=== PATIENT | male | born 2000 | race Caucasian/White ===

== ENCOUNTER 2019-11-19 15:41 | Observation (INO) ==
[2019-11-19] MEDS ORDERED: MoRPHine SULFATE 4 MG/ML 1 ML CARP\\VIAL IV STA (16:22)
[2019-11-19] MEDS ORDERED: SODIUM CHLORIDE 0.9% 1000ML 1,000 ML IV ONE (16:22)
[2019-11-19] MEDS ORDERED: DiphenhydrAMINE HCL 50 MG/ML VIAL IV STA (16:22)
[2019-11-19] MEDS ORDERED: METOCLOPRAMIDE HCL INJ 5 MG/ML 2 ML VIAL IV STA (16:22)
[2019-11-19] MEDS ORDERED: FAMOTIDINE 20MG IV PUSH 20 MG/5 ML SYR IV STA (16:22)
--- NOTE | 2019-11-19 16:40 | Emergency Department Note ---
Impression & Plan Nausea & vomiting, Abdominal pain, Dehydration ED Provider Note Provider: Mikal Antonio MD DATE OF SERVICE: 11/19/2019 CHIEF COMPLAINT: Abdominal pain, vomiting HISTORY OF PRESENT ILLNESS: Patient is a 19-year-old gentleman with a history of anxiety as well as recent onset of abdominal issues presenting here today for severe abdominal pain nausea and vomiting. Patient was evaluated here earlier this morning but states about an hour after leaving he had symptoms restart. Denies drinking anything to provoke this. Denies fevers. Denies trauma. Endorses some diarrhea. Patient states he was hospitalized about a month ago in [place] for similar. Patient states his anxiety is a flare. States his little bit of heartburn symptoms. Patient is highly anxious and states he has severe pain. Patient endorses abdominal tenderness REVIEW OF SYSTEMS: A total of 10 review of systems was obtained and negative except as stated above in the HPI. PAST MEDICAL HISTORY: As noted above MEDICATIONS: Reviewed home medication list SOCIAL HISTORY: College student, does use marijuana PHYSICAL EXAM: GENERAL: alert writhing on the bed on his right side appears quite uncomfortable Head: normocephalic and atraumatic EYES: No injection, discharge or icterus. ENT: Mucous membranes pink and moist. LUNGS: Airway patent. No retractions. HEART: Regular tachycardic rate and rhythm. No chest wall tenderness ABDOMEN: Soft with diffuse abdominal tenderness SKIN: Acyanotic, warm, mildly diaphoretic EXTREMITIES: Without swelling, tenderness or deformity NEUROLOGICAL: No focal deficits. No aphasia. No facial droop or slurred speech. Psych: Patient endorses and appears quite anxious EK bpm normal sinus rhythm no PVCs or PACs. No acute ST segment elevation. QTc 456 CONTINUOUS CARDIAC MONITORING: was ordered and showed a heart rate of 74 bpm in normal sinus rhythm Patient's hypertension was referred to the hospitalist HOSPITAL COURSE: 1620 Patient was first seen and H&P performed. Father at bedside. Patient appears significantly uncomfortable and anxious. 1655 Patient reassessed and updated. Patient was much improved. Will discuss with the hospitalist team. Patient's laboratory studies and imaging reviewed. Differential includes Appendicitis, infections, diverticulitis, UTI, obstruction, mesenteric ischemia, aortic pathology, inflammatory bowel disease, renal colic, PUD, pancreatitis, biliary pathology, hernia, volvulus, constipation, as well as other pathologies. IMPRESSION/MEDICAL DECISION MAKING: Patient presents with severe diffuse abdominal pain. Had blood work and a CT image performed this morning. Reviewed recent medical records. Patient treated here symptomatically fluids, antiemetics, morphine as well as Pepcid. Repeat blood work was sent. EKG and troponin complain of lower suspicion for acute ACS given his age and risk factors. CT of the abdomen pelvis was completed just several hours ago and do not feel repeat would be beneficial. I have some component of cannabinoid hyperemesis or versus gastritis. Given some Pepcid in addition to Reglan IV fluid and morphine. Labs do note a slight increase in leukocytosis but no other significant transaminitis or evidence of lipase elevation consistent with pancreatitis. Bilirubin unchanged from earlier today. Ketones noted in the urine because of some mild dehydration likely to his nausea and vomiting. Given his recurrence of symptoms and severity of his symptoms patient father wished for GI consultation which I feel would be reasonable. On reevaluation he is having improvement. Discussed with him plan for further observation here in the hospital. DIAGNOSIS: Abdominal pain, nausea vomiting DISPOSITION: Hospitalist will evaluate Patient was agreeable with this plan. Past Med/Surg History Medical History (Updated 11/19/19 @ 19:20 by Mikal Antonio M.D.) Anxiety Gastritis Surgical History No history of previous surgery Social History Smoking Status: Never smoker Hx Alcohol Use: Yes Alcohol Intake Frequency: 2-4 x/Month Hx Substance Use: Yes Non-Prescribed Medications: Marijuana Preferred Language: Turkmen Current Living Situation Comment: Apartment with roommate current occupational status: student current occupation: [employer] student from [facility] [facility] [employer] Feels Safe at Home: Yes Allergies Allergies Allergy/AdvReac Type Severity Reaction Status Date / Time No Known Allergies Allergy Verified 11/19/19 12:19 Home Meds Home Medications Medication Instructions Recorded Confirmed omeprazole 20 mg PO QAM 11/19/19 11/19/19 Previous Rx's Medication Instructions Recorded ondansetron 4 mg PO Q6H PRN #20 tab 11/17/19 dicyclomine 10 mg PO TID PRN #15 cap 11/19/19 pantoprazole [Protonix] 40 mg PO DAILY #30 tab 11/19/19 Results & Data (ED) Vital Signs Vital Signs - 24 hr 11/19/19 15:43 11/19/19 17:03 11/19/19 17:30 Temperature 36.5 C Temperature Source Oral Pulse Rate 86 76 78 Respiratory Rate 20 21 16 Respiratory Effort / Characteristics Non-Labored Spontaneous Respiratory Depth Normal Respiratory Pattern Regular Blood Pressure 143/88 H 126/63 133/48 L Blood Pressure Mean 106 83 71 Blood Pressure Position Sitting Pulse Oximetry 96 97 99 Oxygen Delivery Method Room Air Sepsis Recent Fever Within 48 Hours No Sepsis New/Unexplained Change in Mental Status N/A Sepsis Action Taken by Nursing No Action Required 11/19/19 18:33 Temperature Temperature Source Pulse Rate 74 Respiratory Rate 22 Respiratory Effort / Characteristics Respiratory Depth Respiratory Pattern Blood Pressure 120/65 Blood Pressure Mean 81 Blood Pressure Position Pulse Oximetry 98 Oxygen Delivery Method Sepsis Recent Fever Within 48 Hours Sepsis New/Unexplained Change in Mental Status Sepsis Action Taken by Nursing Laboratory Data Result diagrams: 11/19/19 16:29 11/19/19 16:29 Lab Results 11/19/19 11/19/19 11/19/19 Range/Units 16:29 16:29 17:43 WBC 11.19 H (4.8-10.8) K/uL RBC 5.04 (4.7-6.1) M/uL Hgb 15.6 (14.0-18.0) g/dL Hct 44.8 (42-52) % MCV 88.9 (80-100) fL MCH 31.0 (25-34) pg MCHC 34.8 (32-36) g/dL RDW Std Deviation 42.6 (36.4-46.3) fL RDW Coeff of [place] 13.1 (11.5-14.5) % Plt Count 265 (130-400) K/uL MPV 10.2 (7.4-10.4) fL Immature Gran % (Auto) 0.2 % Neut % (Auto) 85.4 % Lymph % (Auto) 10.4 % [place] % (Auto) 3.8 % Eos % (Auto) 0.0 % Baso % (Auto) 0.2 % Neut # (Auto) 9.56 H (1.4-6.5) K/uL Lymph # (Auto) 1.16 L (1.2-3.4) K/uL [place] # (Auto) 0.43 (0.11-0.59) K/uL Eos # (Auto) 0.00 (0-0.5) K/uL Baso # (Auto) 0.02 (0-0.2) K/uL Immature Gran # (Auto) 0.02 (0.00-0.02) K/uL Sodium 137 (136-145) mmol/L Potassium 4.0 (3.5-5.1) mmol/L Chloride 107 (98-107) mmol/L Carbon Dioxide 17 L (21-32) mmol/L Anion Gap 13.0 H (3-11) BUN 11 (7-18) mg/dl Creatinine 1.11 (0.6-1.4) mg/dl Est Cr Clr Drug Dosing 102.7 ml/min Est GFR ( Amer) 110.2 Est GFR (Non-Af Amer) 95.1 BUN/Creatinine Ratio 9.9 L (10-20) Glucose 96 (70-99) mg/dl Calcium 9.9 (8.5-10.1) mg/dl Total Bilirubin 1.3 H (0.2-1) mg/dl AST 24 (15-37) U/L ALT 15 (12-78) U/L Alkaline Phosphatase 73 (45-117) U/L Troponin I < 0.015 (0-0.045) ng/ml Total Protein 8.2 (6.4-8.2) gm/dl Albumin 4.6 (3.4-5.0) gm/dl Globulin 3.6 (2.5-4.0) gm/dl Albumin/Globulin Ratio 1.3 (0.9-2) Lipase 73 (73-393) U/L Urine Color [place] Urine Appearance Clear (Clear) Urine pH 8.0 H (4.5-7.5) Ur Specific [place] 1.038 H (1.000-1.030) Urine Protein Negative (Negative) Urine Glucose (UA) Negative (Negative) Urine Ketones 3+ H (Negative) Urine Blood Negative (Negative) Urine Nitrite Negative (Negative) Urine Bilirubin Negative (Negative) Urine Urobilinogen Negative (Negative) Ur Leukocyte Esterase Negative (Negative) Administered Medications Discontinued Medications Diphenhydramine HCl (Diphenhydramine Hcl 50 Mg/Ml Vial) 25 mg IV NOW STA Stop: 11/19/19 16:23 Last Admin: 11/19/19 16:36 Dose: 25 mg Documented by: [id number] Sodium Chloride (Nss 1000ml) 1,000 mls @ 999 mls/hr IV .Q1H1M ONE Stop: 11/19/19 17:22 Last Infusion: 11/19/19 17:37 Dose: 0 mls/hr Documented by: [id number] Admin: 11/19/19 16:36 Dose: 999 mls/hr Documented by: [id number] Famotidine (Pepcid 20mg Iv Push) 20 mg in 5 mls @ 2.5 mls/min IV NOW STA Stop: 11/19/19 16:23 Last Admin: 11/19/19 16:35 Dose: 2.5 mls/min Documented by: [id number] Metoclopramide HCl (Metoclopramide Hcl Inj 5 Mg/Ml 2 Ml Vial) 5 mg IV NOW STA Stop: 11/19/19 16:23 Last Admin: 11/19/19 16:35 Dose: 5 mg Documented by: [id number] Morphine Sulfate (Morphine Sulfate 4 Mg/Ml 1 Ml Carp\Vial) 4 mg IV NOW STA Stop: 11/19/19 16:23 Last Admin: 11/19/19 16:35 Dose: 4 mg Documented by: [id number] Pantoprazole Sodium (Pantoprazole 40 Mg Tab) 40 mg PO [id number] ONE Stop: 11/19/19 18:46 Last Admin: 11/19/19 18:39 Dose: 40 mg Documented by: [id number] Pantoprazole Sodium (Pantoprazole 40 Mg Tab) Confirm Administered Dose 40 mg .[facility] Stop: 11/19/19 18:32 Last Admin: 11/19/19 18:33 Dose: Not Given Documented by: [id number] Discharge Plan Visit Data Chief Complaint: Abdominal Pain Stated Complaint: abd pain, nausea, was here earlier today ED Provider: Mikal Antonio Discharge Problem: Nausea & vomiting, Abdominal pain, Dehydration Forms Stand Alone Forms: My [facility] [employer] Prescriptions Prescriptions: No Action ondansetron 4 mg tablet,disintegrating 4 mg PO Q6H PRN (Reason: nausea and vomiting) Qty: 20 RF: 0 omeprazole 20 mg capsule,delayed release(DR/EC) 20 mg PO QAM RF: 0 pantoprazole [Protonix] 40 mg tablet,delayed release (DR/EC) 40 mg PO DAILY Qty: 30 RF: 0 dicyclomine 10 mg capsule 10 mg PO TID PRN (Reason: abdominal pain) Qty: 15 RF: 0 Discharge Problem: Nausea & vomiting Qualifiers: Vomiting type: unspecified Vomiting Intractability: non-intractable Qualified Code(s): R11.2 - Nausea with vomiting, unspecified Abdominal pain Qualifiers: Abdominal location: generalized Qualified Code(s): R10.84 - Generalized abdominal pain
[2019-11-19 16:43] LABS: Basophils # (auto) 0.02 K/uL (0-0.2); Basophils % (auto) 0.2 %; Hematocrit (blood only) 44.8 % (42-52); Hemoglobin 15.6 g/dL (14.0-18.0); Immature Granulocytes # (auto) 0.02 K/uL (0.00-0.02); Immature Granulocytes % (auto) 0.2 %; Lymphocytes # (auto) 1.16 K/uL (1.2-3.4); Lymphocytes % (auto) 10.4 %; Mean Corpuscular Hgb Conc 34.8 g/dL (32-36); Mean Corpuscular Volume 88.9 fL (80-100); Mean Platelet Volume 10.2 fL (7.4-10.4); Monocytes # (auto) 0.43 K/uL (0.11-0.59); Monocytes % (auto) 3.8 %; Neutrophils # (auto) 9.56 K/uL (1.4-6.5); Neutrophils % (auto) 85.4 %; Platelet Count 265 K/uL (130-400); RDW Coefficient of Variation 13.1 % (11.5-14.5); RDW Standard Deviation 42.6 fL (36.4-46.3); Red Blood Count 5.04 M/uL (4.7-6.1); White Blood Count 11.19 K/uL (4.8-10.8)
[2019-11-19 17:00] LABS: Alanine Aminotransferase 15 U/L (12-78); Albumin Level 4.6 gm/dl (3.4-5.0); Aspartate Aminotransferase 24 U/L (15-37); BUN Creatinine Ratio 9.9 (10-20); Blood Urea Nitrogen 11 mg/dl (7-18); Calcium 9.9 mg/dl (8.5-10.1); Carbon Dioxide 17 mmol/L (21-32); Chloride 107 mmol/L (98-107); Creatinine Clr Calc Pharmacy 102.7 ml/min; Est GFR (African American) 110.2; Est GFR (Non-African American) 95.1; Glucose 96 mg/dl (70-99); Lipase 73 U/L (73-393); Sodium 137 mmol/L (136-145)
[2019-11-19 17:05] LABS: Albumin Globulin Ratio 1.3 (0.9-2); Alkaline Phosphatase 73 U/L (45-117); Bilirubin,Total 1.3 mg/dl (0.2-1); Globulin 3.6 gm/dl (2.5-4.0); Total Protein 8.2 gm/dl (6.4-8.2); Troponin I < 0.015 ng/ml (0-0.045)
[2019-11-19 17:52] LABS: Appearance Urine Clear (Clear); Bilirubin Urine Negative (Negative); Blood Urine Negative (Negative); Color Urine Orange; Glucose Urine UA Negative (Negative); Ketones Urine 3+ (Negative); Leukocyte Esterase Urine Negative (Negative); Nitrite Urine Negative (Negative); Protein Urine Negative (Negative); Specific Gravity Urine 1.038 (1.000-1.030); Urobilinogen Urine Negative (Negative)
--- NOTE | 2019-11-19 18:12 | History & Physical Report ---
Date of Service November 19, 2019 Assessment & Plan (1) Gastritis: Suspect risk increased due to stress/anxiety, alcohol and prior NSAID use. Continue pantoprazole and famotidine. Will avoid carafate in case decision is to have EGD this admission Avoid alcohol and GERD exacerbating foods such as spicy, acidic, carbonated drinks, caffeine. IV fluids overnight Consult gastroenterology by patient request (2) Cannabinoid hyperemesis syndrome: Suspected based on history. Trial capsaicin cream for abdominal pain. Avoid chocolate, cheese, monosodium glutamate. (3) Nausea & vomiting: Ondansetron and Phenergan PRN for nausea/vomiting (4) Abdominal pain: Suspect combination of gastritis and cannabinoid hyperemesis (5) Ketonuria: (6) Marijuana use: (7) Dehydration: Admission and Anticipated Discharge Date Admission Date: 11/19/2019 History of Present Illness Chief Complaint: Abdominal pain, nausea and vomiting Primary Care Provider: NO PCP Ayo Chacon is a 19-year-old male who presents to the ER for the second time today due to abdominal pain, nausea, vomiting. Earlier today he received famotidine, morphine, Compazine, normal saline bolus, dicyclomine, diphenhydramine. He felt much better after these interventions but his pain, nausea, vomiting returned after 1 hour when he went home. His episodes start with mild epigastric pain which leads to nausea and extreme vomiting of yellow bile. No coffee-ground vomiting. No blood noticed in vomit. Associated diarrhea. No fever or chills. The nausea and vomiting leads to severe 10/10 epigastric pain to the extent he needs to come to the ER. This tends to come on approximately 30 minutes after eating. He has not had a substantial meal since Sunday, just eating protein shakes and crackers. These episodes have been going on since the end of September. At that time he went to the ER in [place] but left before being seen on October 09. He returned to the ER for recurrent episode on October 11 and was admitted overnight. On this occasion he reports having an ultrasound of his liver which was unremarkable. He was diagnosed with gastritis and prescribed omeprazole, Zofran and "something to line his stomach" which I suspect is Carafate. These episodes were thought to be due to drinking excessive alcohol the night before. A plain diet was recommended which he stopped to for the next 2 weeks. He had no recurrence until 2 days ago. He reports drinking alcohol 2 days prior to this, but thinks a [employer] meal that he ate on Sunday started this episode. He came to the ER and received a cocktail of Compazine, famotidine, normal saline bolus, Benadryl, morphine. He appeared to improve for the next 2 days until this morning. He does note smoking cannabis, last on Sunday night. He also reports increased chest anxiety which is increased since returning to [facility]. Currently the patient reports improvement in the pain with interventions in the ER on this occasion including normal saline bolus, diphenhydramine, famotidine, metoclopramide, morphine. He currently feels he can take oral medication and wants to try a liquid diet. Allergies Allergy/AdvReac Type Severity Reaction Status Date / Time No Known Allergies Allergy Verified 11/19/19 12:19 Home Medications Home Medications Medication Instructions Recorded Confirmed Type ondansetron 4 mg PO Q6H PRN #20 tab 11/17/19 11/19/19 Rx dicyclomine 10 mg PO TID PRN #15 cap 11/19/19 11/19/19 Rx omeprazole 20 mg PO QAM 11/19/19 11/19/19 History pantoprazole [Protonix] 40 mg PO DAILY #30 tab 11/19/19 11/19/19 Rx Past Med/Surg History Medical History Anxiety Gastritis Surgical History No history of previous surgery Social History Smoking Status: Never smoker Hx Alcohol Use: Yes Alcohol type: beer Alcohol Intake Frequency: 2-4 x/Month Hx Substance Use: Yes Non-Prescribed Medications: Marijuana Last Used Substance: Hours (ago) Last Used Substance Other:: SMOKED 11/18/19 Preferred Language: Uzbek Communication Ability: Effective Ditch Inspector Required: No Beliefs That Will Affect Care: None Current Living Situation: Other Current Living Situation Comment: [employer] WITH 1 PERSON current occupational status: student current occupation: [employer] student from [employer] Other Information That Helps Us Care for You: No Feels Safe at Home: Yes Safety Concerns: Feels Safe At This Time Review of Systems Review of Systems: All systems reviewed & are unremarkable except as noted in HPI & below Physical Exam Constitutional: well developed and well nourished; no acute distress Eyes: + anicteric sclerae; normal pupil size ENMT: external ear and nose normal, oropharynx normal Neck: trachea midline, no thyromegaly Respiratory: normal respiratory effort, lungs clear to auscultation Cardiovascular: RRR, no murmur, no edema Gastrointestinal (Abdomen): Inspection/Auscultation: abdomen normal to inspection and normal bowel sounds Percussion/Palpation: + abdomen tender (Epigastric) and abdomen soft; no guarding and abdomen not rigid Musculoskeletal: no cyanosis or clubbing, extremities motor strength 5/5 Skin: no rashes, warm and dry Neurologic: awake; not confused Psychiatric: A+Ox3, euthymic affect Genitourinary: no CVA tenderness Lymphatic: no cervical or axillary lymphadenopathy Results & Data Results & Data ([facility]) Vital Signs (Past 12 Hours) Vital Signs Temp Pulse Resp BP Pulse Ox 11/19/19 17:30 58 L 16 133/48 L 99 11/19/19 17:03 76 21 126/63 97 11/19/19 15:43 36.5 C 86 20 143/[address] SCAN OF THE ABDOMEN AND PELVIS WITH IV CONTRAST IMPRESSION: 1. Trace free fluid in the pelvis is a nonspecific but abnormal finding. This m ay be on a reactive basis and clinical correlation will be required. 2. There is no bowel obstruction. 3. Normal appendix. ECG Indication: abdominal pain Rate (beats per minute): 80 Rhythm: normal sinus Findings: no acute ischemic change Comparison ECG Date: no prior available Code Status & VTE Plan Code Status Full VTE Prophylaxis Plan VTE Prophylaxis will be ordered: No PG Care Time/CCT Total # of Minutes Spent Total Time Spent with Patient: Total time spent is greater than 50% in coordination of care (as documented) at patient's floor/unit and/or counseling patient: Coding Level of Care Code 19258 OBS Care - Level 3 Diagnoses Gastritis K29.00 Chronicity: acute Gastritis bleeding: without bleeding Gastritis type: unspecified gastritis Cannabinoid hyperemesis syndrome R11.2; F12.90 Nausea & vomiting R11.2 Vomiting Intractability: non-intractable Vomiting type: unspecified Abdominal pain R10.84 Abdominal location: generalized Ketonuria R82.4 Marijuana use F12.90 Dehydration E86.0 (1) Gastritis Chronicity: acute Gastritis bleeding: without bleeding Gastritis type: unspecified gastritis Qualified Code(s): K29.00 - Acute gastritis without bleeding (2) Nausea & vomiting Vomiting Intractability: non-intractable Vomiting type: unspecified Qualified Code(s): R11.2 - Nausea with vomiting, unspecified (3) Abdominal pain Abdominal location: generalized Qualified Code(s): R10.84 - Generalized abdominal pain
[2019-11-19] MEDS ORDERED: PANTOprazole 40 MG TAB ONE (18:31)
[2019-11-19] MEDS ORDERED: PANTOprazole 40 MG TAB PO ONE (18:45)
[2019-11-19] MEDS ORDERED: CAPSAICIN CR 0.075% 60 GM TUBE EXT PRN (19:51)
[2019-11-19] MEDS ORDERED: ALUMINUM/MAGNESIUM SUSP 30 ML UDC PO PRN (19:51)
[2019-11-19] MEDS: LACTATED RINGER'S 1,000 ML IV SCH (20:14)
[2019-11-19] MEDS ORDERED: ACETAMINOPHEN 325 MG TAB PO PRN (20:46)
[2019-11-19] MEDS ORDERED: ONDANSETRON INJ 2 MG/ML 2 ML VIAL IV PRN (20:48)
[2019-11-19] MEDS ORDERED: PROMETHAZINE HCL 12.5 MG in SODIUM CHLORIDE 0.9% 50 ML IV PRN (20:48)
[2019-11-20] MEDS: LACTATED RINGER'S 1,000 ML IV SCH ×3 (03:34→20:35)
[2019-11-20] MEDS: FAMOTIDINE 20 MG TAB PO SCH (08:03)
[2019-11-20] MEDS ORDERED: LORazepam 0.25 MG/0.5 ML VIAL IV STA (08:40)
[2019-11-20] MEDS ORDERED: PANTOprazole 40 MG TAB PO SCH (09:00)
--- NOTE | 2019-11-20 10:24 | Gastrointestinal Consultation ---
Date of Consultation November 20, 2019 Assessment & Plan (1) Nausea & vomiting: (2) Abdominal pain: Diff dx: CHS vs GERD vs gastritis vs PUD vs gall bladder disease vs other. 1. NPO for now. 2. Plan for EGD with Dr. Baig this afternoon. 3. Continue current treatment with PPI/H2RA/antiemetics as prescribed. 4. Counseled on ongoing alcohol and THC use in regard to GI symptoms. 5. Additional recommendations will be made pending results of testing. Thank you for allowing us to participate in the care of this patient. If you have questions or concerns, please do not hesitate to contact us at [phone] or [phone]. Supervising Physician Co-Signing Physician Notes I personally evaluated the patient and agree with the findings as documented by SHAMAR Hilton Exam: abd: soft, nt, nd chronic abdominal discomfort worse with eating, plan for EGD to further evaluate this afternoon, keep NPO. History of Present Illness Reason for Consultation: Abdominal pain Requesting Physician: Dr. Naik Attending Physician: Mushtaq Hernandez DO History of Present Illness Patient is a 19 year-old male with a history of clinically diagnosed gastritis presenting to the ER twice yesterday after developing acute abdominal pain with associated n/v which reportedly began on Sunday after eating lunch at [facility]. He was seen and evaluated for similar symptoms after 2 episodes of drinking while at home in [facility] prior to arriving back at [employer]. He was prescribed Omeprazole and Carafate. It appears he was not adherent with treatment but states he did follow a strictly bland diet for two weeks after his admission in early October. Biliary ultrasound has been negative in the past. CT a/p on this admission was unremarkable as were labs with the exception fo a mild leukocytosis which is improving. Currently, he describes intermittent epigastric pain that is a 10/10 in intensity when it occurs. There is no radiation. Describes the pain as a "bad ache" and constant uncomfortable feeling. No n/v today but states he did have an emesis last night. There was no hematemesis. There is associated borborygmi, loose and dark stools. Symptoms are worse with stress and improved with analg esics. Prior history of NSAID use and alcohol as mentioned. He is a current THC user as well. Patient has been placed on Protonix, Pepcid, Zofran and Capsaicin in this regard. He is on a full liquid diet. Allergies Allergy/AdvReac Type Severity Reaction Status Date / Time No Known Allergies Allergy Verified 11/19/19 12:19 Home Medications Home Medications Medication Instructions Recorded Confirmed Type ondansetron 4 mg PO Q6H PRN #20 tab 11/17/19 11/19/19 Rx dicyclomine 10 mg PO TID PRN #15 cap 11/19/19 11/19/19 Rx omeprazole 20 mg PO QAM 11/19/19 11/19/19 History pantoprazole [Protonix] 40 mg PO DAILY #30 tab 11/19/19 11/19/19 Rx Patient History Medical History Anxiety Gastritis Surgical History No history of previous surgery Social History Smoking Status: Never smoker Hx Alcohol Use: Yes Alcohol type: beer Alcohol Intake Frequency: 2-4 x/Month Hx Substance Use: Yes Non-Prescribed Medications: Marijuana Last Used Substance: Hours (ago) Last Used Substance Other:: SMOKED 11/18/19 Preferred Language: Scottish Communication Ability: Effective Frit Burner Required: No Beliefs That Will Affect Care: None Current Living Situation: Other Current Living Situation Comment: [employer] LIV[employer] WITH 1 PERSON current occupational status: student current occupation: [employer] student from [facility] Other Information That Helps Us Care for You: No Feels Safe at Home: Yes Safety Concerns: Feels Safe At This Time Review of Systems Review of Systems: All systems reviewed & are unremarkable except as noted in HPI & below Physical Exam Constitutional: WD/WN, vitals as above Eyes: EOM intact bilaterally Neck: normal appearance Respiratory: normal respiratory effort, lungs clear to auscultation Cardiovascular: Rate/Rhythm: regular rate and regular rhythm Heart Sounds: no gallop and no murmur Gastrointestinal (Abdomen): Inspection/Auscultation: abdomen normal to inspection and normal bowel sounds; abdomen not distended Percussion/Palpation: + abdomen tender (epigastric region) and abdomen soft Musculoskeletal: Extremities: no cyanosis no lower extremity edema Skin: no rashes, warm and dry Neurologic: moves all extremities Psychiatric: A+Ox3, euthymic affect Results & Data ([facility]) Vital Signs (Past 12 Hours) Vital Signs Temp Pulse Resp BP Pulse Ox 11/20/19 07:12 36.6 C 60 16 106/63 97 11/19/19 23:34 36.8 C 66 14 122/72 100 Laboratory Results Abnormal lab results 11/19/19 11/19/19 11/19/19 Range/Units 16:29 16:29 17:43 WBC 11.19 H (4.8-10.8) K/uL Neut # (Auto) 9.56 H (1.4-6.5) K/uL Lymph # (Auto) 1.16 L (1.2-3.4) K/uL Carbon Dioxide 17 L (21-32) mmol/L Anion Gap 13.0 H (3-11) BUN/Creatinine Ratio 9.9 L (10-20) Total Bilirubin 1.3 H (0.2-1) mg/dl Urine pH 8.0 H (4.5-7.5) Ur Specific [place] 1.038 H (1.000-1.030) Urine Ketones 3+ H (Negative) PG Care Time/CCT Total # of Minutes Spent Total Time Spent with Patient: Total time spent is greater than 50% in coordination of care (as documented) at patient's floor/unit and/or counseling patient: Coding Level of Care Code 71006 Inpt Consult Level 4 Diagnoses Nausea & vomiting R11.2 Vomiting Intractability: non-intractable Vomiting type: unspecified Abdominal pain R10.84 Abdominal location: generalized (1) Nausea & vomiting Vomiting Intractability: non-intractable Vomiting type: unspecified Qualified Code(s): R11.2 - Nausea with vomiting, unspecified (2) Abdominal pain Abdominal location: generalized Qualified Code(s): R10.84 - Generalized abdominal pain
--- NOTE | 2019-11-20 13:07 | Hospitalist Progress Note ---
Date of Service November 20, 2019 Assessment & Plan (1) Gastritis: Suspect risk increased due to stress/anxiety, alcohol and prior NSAID use. Continue pantoprazole and famotidine. Avoid alcohol and GERD exacerbating foods such as spicy, acidic, carbonated drinks, caffeine. IV fluids overnight Consult gastroenterology - EGD this afternoon (2) Cannabinoid hyperemesis syndrome: Suspected based on history. Encourage marijuana cessation Capsaicin prn, does not appear he has required it. (3) Nausea & vomiting: Improving - continue antiemetics (4) Abdominal pain: Improving - Suspect combination of gastritis and cannabinoid hyperemesis (5) Ketonuria: (6) Marijuana use: (7) Dehydration: (8) Anxiety: Anxiety seems to be the intermodal truck driver of poor lifestyle choices involving foods and alcohol use. Discussed medication options: Buspar vs SSRI vs SNRI. Patient was open to trying an anti-anxiety medication. Denied any issues with depression. Will revisit tomorrow when he can start taking po (9) DVT prophylaxis: Low risk - encourage ambulation Admission and Anticipated Discharge Date Admission Date: November 19, 2019 Subjective Mr. Chacon is feeling better than when he came in. His pain is better, nausea is improved. NPO for EGD this afternoon ROS Constitutional: no chills, aches, sweats or fever Respiratory: no sob,cough, sputum, or wheezing Cardiac: no chest pain, palpitations, edema, orthopnea or lightheadedness GI: no abdominal pain, nausea, vomiting, diarrhea or constipation : no dysuria or hesitancy Extremities: no joint pain or weakness Skin: no rash All other systems reviewed and negative Physical Exam Physical Exam: General: no distress Eyes: normal inspection, PERLL Respiratory: chest non tender, clear to auscultation, normal breath sounds, no respiratory distress, no accessory muscle use Cardiac: regular rate and rhythm, no rub or gallop, no murmur, no edema, no jvd GI/: active bowel sounds, no abd pain or tenderness, soft, non distended Extremities: normal range of motion, normal strength, non tender Neuro/Psych: alert and oriented x 3, normal mood and affect Skin: normal color, dry Results & Data Results & Data ([facility]) Vital Signs (Past 12 Hours) Vital Signs Temp Pulse Resp BP Pulse Ox 11/20/19 07:12 36.6 C 60 16 106/63 97 PG Care Time/CCT Total # of Minutes Spent Total Time Spent with Patient: Total time spent is greater than 50% in coordination of care (as documented) at patient's floor/unit and/or counseling patient: Coding Level of Care Code 71987 Subseq Hosp Care Lvl 2 Diagnoses Gastritis K29.00 Chronicity: acute Gastritis bleeding: without bleeding Gastritis type: unspecified gastritis Cannabinoid hyperemesis syndrome R11.2; F12.90 Nausea & vomiting R11.2 Vomiting Intractability: non-intractable Vomiting type: unspecified Abdominal pain R10.84 Abdominal location: generalized Ketonuria R82.4 Marijuana use F12.90 Dehydration E86.0 Anxiety F41.9 DVT prophylaxis Z29.9 (1) Gastritis Chronicity: acute Gastritis bleeding: without bleeding Gastritis type: unspecified gastritis Qualified Code(s): K29.00 - Acute gastritis without bleeding (2) Nausea & vomiting Vomiting Intractability: non-intractable Vomiting type: unspecified Qualified Code(s): R11.2 - Nausea with vomiting, unspecified (3) Abdominal pain Abdominal location: generalized Qualified Code(s): R10.84 - Generalized abdominal pain
--- NOTE | 2019-11-20 15:30 | Anesthesiology Consultation ---
Date of Service November 20, 2019 Assessment & Plan (1) Encounter for pre-operative examination: Chart Review Chart Review: Acceptable Risk for Surgery Consults Requested none ASA ASA2 Proposed Anesthesia Anesthesia Type: MAC Risk / Benefits Reviewed With: PT / POA / Parent / Guardian, Accepts Plan and Informed Consent Obtained History Surgery Operation Date: 11/20/19 18:00 Proposed Procedures p Esophagogastroduodenoscopy Dr. Jovanni Baig MD Height/Weight Height: 6 ft 3 in Weight: 71.8 kg Allergies Allergy/AdvReac Type Severity Reaction Status Date / Time No Known Allergies Allergy Verified 11/20/19 15:24 Medications Home Medications Medication Instructions Recorded Confirmed Last Taken ondansetron 4 mg PO Q6H PRN #20 tab 11/17/19 11/19/19 Unknown dicyclomine 10 mg PO TID PRN #15 cap 11/19/19 11/19/19 Unknown omeprazole 20 mg PO QAM 11/19/19 11/19/19 11/19/19 pantoprazole [Protonix] 40 mg PO DAILY #30 tab 11/19/19 11/19/19 Unknown Active Medications Generic Name Dose Route Start Last Admin Trade Name Freq PRN Reason Stop Dose Admin Famotidine 20 mg 11/20/19 09:00 11/20/19 08:03 Famotidine 20 Mg Tab PO 12/20/19 08:59 20 mg QAM AMARI Administration Lactated Ringer's 1,000 mls @ 125 mls/hr 11/19/19 19:51 11/20/19 11:00 Lr IV 12/19/19 19:50 125 mls/hr .Q8H AMARI Administration Ondansetron HCl 4 mg 11/19/19 20:48 11/20/19 08:03 Ondansetron Inj 2 Mg/Ml 2 Ml Vial IV 12/19/19 20:59 4 mg Q6H PRN Administration Nausea and vomiting Pantoprazole Sodium 40 mg 11/20/19 09:00 11/20/19 08:01 Pantoprazole 40 Mg Tab PO 12/20/19 08:59 40 mg DAILY AMARI Administration NPO Date Last Intake of Fluids: 11/20/19 Time Last Intake of Fluids: 09:30 Date Last Intake of Solids: 11/20/19 Time Last Intake of Solids: 09:30 Past Medical History Medical History Anxiety Gastritis Exercise / Class Metabolic Activity II 4-5 Yardwork/Stairs/Walk up hill Past Surgical History Surgical History No history of previous surgery Past Anesthesia History No Hx of Anesthesia Complications and No Family Hx of Anesthesia Complications History of PONV No Hx of PONV and No Hx of Motion Sickness Social History Smoking Status: Never smoker Hx Alcohol Use: Yes Alcohol type: beer alcohol intake frequency: other Alcohol Intake Frequency Comment: ONCE A WEEK Hx Substance Use: Yes substance use type: marijuana Last Used Substance: Hours (ago) Last Used Substance Other:: SMOKED 11/18/19 Physical Exam Vital Signs Last Vital Signs Temp 97.9 F 11/20/19 07:12 Pulse 60 11/20/19 07:12 Resp 16 11/20/19 07:12 BP 106/63 11/20/19 07:12 Pulse Ox 97 11/20/19 07:12 ENMT Mouth: no dentition abnormality Thyromental Distance: > or= 3.5 Finger Breadths Mallampati Class: II Neck normal visual inspection Respiratory normal respiratory effort Auscultation: lungs clear to auscultation bilaterally Cardiovascular Rate/Rhythm: regular rate and regular rhythm Testing Laboratory Results 11/19/19 16:29 11/19/19 16:29 Urine Color [place] 11/19/19 17:43 Urine Appearance Clear (Clear) 11/19/19 17:43 Urine pH 8.0 (4.5-7.5) H 11/19/19 17:43 Ur Specific [place] 1.038 (1.000-1.030) H 11/19/19 17:43 Urine Protein Negative (Negative) 11/19/19 17:43 Urine Glucose (UA) Negative (Negative) 11/19/19 17:43 Urine Ketones 3+ (Negative) H 11/19/19 17:43 Urine Nitrite Negative (Negative) 11/19/19 17:43 Ur Leukocyte Esterase Negative (Negative) 11/19/19 17:43
[2019-11-20] MEDS ORDERED: PROPOFOL IV EMULSION 10 MG/ML 20 ML VIAL IV ONE ×2 (15:50→16:01)
[2019-11-20] MEDS ORDERED: LIDOCAINE HCL 2% 2 ML VIAL/AMP(20MG/ML) INFIL ONE (15:50)
[2019-11-20] MEDS ORDERED: MIDAZOLAM HCL 1 MG/ML 2ML VIAL ONE (15:52)
--- NOTE | 2019-11-20 16:18 | Procedure Note ---
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 biopsies of esophagus taken for EOE. severe gastritis, biopsied. no active bleeding throughout entire procedure. Recs: -start fluconazole 400 mg on day 1, then 200 mg daily for 14 more days -start protonix 40 mg BID -consider HIV testing given likely amber esophagitis with no clear etiology -await path results -rest as per primary team Liang Baig MD Gastroenterology Coding
--- NOTE | 2019-11-20 16:21 | Anesthesiology Progress Note ---
Date of Service November 20, 2019 Anesthesia Post Procedure Vital Signs Vital Signs: Temp Pulse Pulse Pulse Resp BP BP 11/20/19 16:12 48 L 16 118/62 11/20/19 15:25 97.9 F 66 16 142/72 H 11/20/19 07:12 97.9 F 60 16 106/63 11/19/19 23:34 98.2 F 66 14 122/72 11/19/19 19:51 98.1 F 63 18 134/78 11/19/19 19:31 88 20 138/77 11/19/19 18:33 74 22 120/65 11/19/19 17:30 78 16 133/48 L 11/19/19 17:03 76 21 126/63 Pulse Ox 11/20/19 16:12 98 11/20/19 15:25 99 11/20/19 07:12 97 11/19/19 23:34 100 11/19/19 19:51 99 11/19/19 19:31 98 11/19/19 18:33 98 11/19/19 17:30 99 11/19/19 17:03 97 Pain Intensity Bilateral Abdomen: Pain Intensity: 0 Transfer of Care Handoff Completed per policy Notes Mental Status: alert / awake / arousable and participated in evaluation Patient Amnestic to Procedure: Yes Nausea / Vomiting: adequately controlled Pain: adequately controlled Airway Patency, RR, SpO2: stable & adequate BP & HR: stable & adequate Hydration State: stable & adequate Anesthetic Complications: no major complications apparent and Pt Satisfied with anesthetic care
[2019-11-20] MEDS ORDERED: FLUCONAZOLE 200 MG/5 ML UDP PO ONE (16:45)
[2019-11-20] MEDS: PANTOprazole 40 MG in SYRINGE 0 ML IV SCH (20:35)
[2019-11-20] MEDS: PANTOprazole 40 MG TAB PO SCH (22:11)
[2019-11-21] MEDS: LACTATED RINGER'S 1,000 ML IV SCH ×2 (03:53→11:54)
[2019-11-21 06:01] LABS: Hematocrit (blood only) 40.8 % (42-52); Hemoglobin 13.7 g/dL (14.0-18.0); Mean Corpuscular Hemoglobin 30.4 pg (25-34); Mean Corpuscular Hgb Conc 33.6 g/dL (32-36); Mean Corpuscular Volume 90.5 fL (80-100); Mean Platelet Volume 10.2 fL (7.4-10.4); Platelet Count 190 K/uL (130-400); RDW Coefficient of Variation 12.9 % (11.5-14.5); RDW Standard Deviation 42.6 fL (36.4-46.3); Red Blood Count 4.51 M/uL (4.7-6.1)
--- NOTE | 2019-11-21 06:15 | Electrocardiogram Report ---
Test Reason : Blood Pressure : / mmHG Vent. Rate : 080 BPM Atrial Rate : 080 BPM P-R Int : 138 ms QRS Dur : 084 ms QT Int : 396 ms P-R-T Axes : 076 073 065 degrees QTc Int : 456 ms Normal sinus rhythm Normal ECG No previous ECGs available Confirmed by Aren Mercado ([id number]) on 11/21/2019 6:15:17 AM Referred By: REFERRED SELF Confirmed By:Aren Mercado
[2019-11-21 06:31] LABS: Albumin Level 3.6 gm/dl (3.4-5.0); BUN Creatinine Ratio 7.7 (10-20); Calcium 8.9 mg/dl (8.5-10.1); Creatinine Clr Calc Pharmacy 134.5 ml/min; Est GFR (African American) 142.7; Est GFR (Non-African American) 123.1; Potassium 3.7 mmol/L (3.5-5.1)
[2019-11-21 06:35] LABS: Albumin Globulin Ratio 1.2 (0.9-2); Bilirubin,Total 1.3 mg/dl (0.2-1); Globulin 3.1 gm/dl (2.5-4.0); Total Protein 6.7 gm/dl (6.4-8.2)
[2019-11-21] MEDS: PANTOprazole 40 MG TAB PO SCH (08:08)
[2019-11-21] MEDS: PANTOprazole 40 MG in SYRINGE 0 ML IV SCH (08:09)
[2019-11-21] MEDS: FAMOTIDINE 20 MG TAB PO SCH (08:53)
[2019-11-21] MEDS ORDERED: FLUCONAZOLE 200 MG/5 ML UDP PO SCH (09:00)
--- NOTE | 2019-11-21 09:05 | GI REPORT ---
Patient Name: Ayo Chacon Procedure Date: 11/20/2019 3:50 PM Date of : 2000 Admit Type: Inpatient Age: 19 Gender: Male Attending MD: Liang Baig MD Procedure: Upper GI endoscopy Providers: Liang Baig MD Referring MD: Mushtaq Hernandez Indications: Abdominal pain, Nausea with vomiting Medicines: Monitored Anesthesia Care Complications: No immediate complications. Estimated blood loss: None. Estimated Blood Loss: Estimated blood loss: none. Procedure: Pre-Anesthesia Assessment: - Prior Anticoagulants: The patient has taken no previous anticoagulant or antiplatelet agents. - ASA Grade Assessment: II - A patient with mild systemic disease. After obtaining informed consent, the endoscope was passed under direct vision. Throughout the procedure, the patient's blood pressure, pulse, and oxygen saturations were monitored continuously. The Endoscope was introduced through the mouth, and advanced to the second part of duodenum. The upper GI endoscopy was accomplished without difficulty. The patient tolerated the procedure well. Findings: Moderately severe esophagitis was found. Cells for cytology were obtained by brushing. Estimated blood loss: none. Biopsies were obtained from the proximal and distal esophagus with cold forceps for histology of suspected eosinophilic esophagitis. Estimated blood loss: none. Diffuse severe inflammation characterized by erosions and erythema was found in the entire examined stomach. Biopsies were taken with a cold forceps for Helicobacter pylori testing. Estimated blood loss: none. The duodenal bulb and second portion of the duodenum were normal. Impression: - Moderately severe candidiasis esophagitis. Cells for cytology obtained. Biopsied. - Gastritis. Biopsied. - Normal duodenal bulb and second portion of the duodenum. Recommendation: - Discharge patient to home (with escort). - Resume previous diet today. - Await pathology results. -protonix 40 mg BID -consider HIV testing given the likely amber esophagitis with no clear etiology Liang Baig MD 11/20/2019 4:15:56 PM This report has been signed electronically. Note Initiated On: 11/20/2019 3:50 PM Number of Addenda: 0 I attest to the content of the Intraoperative Record and orders documented therein, exceptions below {[id number]}
--- NOTE | 2019-11-21 10:16 | Gastroenterology Progress Note ---
Date of Service November 21, 2019 Assessment & Plan (1) Gastritis: -Continue Protonix 40 mg BID -Advance diet as tolerated -Discussed avoiding stress, treating anxiety, and avoiding trigger foods to reduce his symptoms. Discussed that alcohol is a chemical irritant and can worsen both symptoms and affect healing. Would advise avoidance of NSAIDs as well. (2) Esophageal candidiasis: -Complete course of Diflucan x 14 days in this immunocompetent patient Admission and Anticipated Discharge Date Admission Date: November 19, 2019 Subjective Patient is a 19 yo male who is hospitalized with abdominal pain, nausea, & vomiting. He underwent an EGD on 11/20/[address] Baig. The testing indicated esophageal candidiasis as well as gastritis. There was some evidence of esophagitis concerning for EoE, but pathology is pending. He is stable on Pantoprazole 40 mg BID. He has been utilizing antiemetics. He is HIV negative. He identifies that the underlying trigger for his symptoms is stress & anxiety. Overall, his symptoms are improving and he reports he is anxious for his diet to be advanced today. He offers no further complaints at present. Dad is at bedside providing support. Review of Systems Constitutional: no fever and no chills Respiratory: no cough and no dyspnea Cardiovascular: no chest pain Gastrointestinal: abdominal pain, nausea, & vomiting improving Psychiatric: + anxiety stress Physical Exam Constitutional: WD/WN, vitals as above Neck: normal visual inspection Respiratory: normal respiratory effort Cardiovascular: Extremities: no edema Gastrointestinal (Abdomen): Inspection/Auscultation: abdomen normal to inspection Musculoskeletal: Head/Neck/Chest: normocephalic Psychiatric: A+Ox3, euthymic affect Results & Data Results & Data ([facility]) Vital Signs (Past 12 Hours) Vital Signs Temp Pulse Resp BP Pulse Ox 11/21/19 08:26 36.5 C 78 20 136/74 100 11/21/19 07:36 37.2 C 81 20 123/67 99 11/20/19 23:36 36.3 C L 73 15 128/72 99 PG Care Time/CCT Total # of Minutes Spent Total Time Spent with Patient: Total time spent is greater than 50% in coordination of care (as documented) at patient's floor/unit and/or counseling patient: Coding Level of Care Code 10437 Subseq Hosp Care Lvl 2 Diagnoses Gastritis K29.00 Chronicity: acute Gastritis bleeding: without bleeding Gastritis type: unspecified gastritis Esophageal candidiasis B37.81 (1) Gastritis Chronicity: acute Gastritis bleeding: without bleeding Gastritis type: unspecified gastritis Qualified Code(s): K29.00 - Acute gastritis without bleeding
--- NOTE | 2019-11-21 14:58 | Ultrasound Report ---
US gallbladder HISTORY: 19 years-old Male right upper quadrant pain, hyperbilirubinemia acute right upper quadrant abdominal pain COMPARISON: CT abdomen and pelvis 11/19/2019 TECHNIQUE: Multiple real-time sonographic images of the abdominal right upper quadrant were obtained assessing grayscale appearance and color flow FINDINGS: Visualized pancreas is unremarkable. Liver is unremarkable. Gallbladder is within normal limits. No s hadowing cholelithiasis, wall thickening or pericholecystic fluid. Common bile duct is normal, 3 mm. Imaged right kidney is unremarkable without hydronephrosis. IMPRESSION: Unremarkable right upper quadrant abdominal ultrasound. ACT 112: Negative or not required by law. The above report was generated using voice recognition software. It may contain grammatical, syntax o r spelling errors. Electronically signed by: Trever Alex M.D. 11/21/2019 2:57 PM
--- NOTE | 2019-11-21 15:10 | Discharge Summary ---
Date of Service November 21, 2019 Admission HPI Per Admitting Provider Ayo Chacon is a 19-year-old male who presents to the ER for the second time today due to abdominal pain, nausea, vomiting. Earlier today he received famotidine, morphine, Compazine, normal saline bolus, dicyclomine, diphenhydramine. He felt much better after these interventions but his pain, nausea, vomiting returned after 1 hour when he went home. His episodes start with mild epigastric pain which leads to nausea and extreme vomiting of yellow bile. No coffee-ground vomiting. No blood noticed in vomit. Associated diarrhea. No fever or chills. The nausea and vomiting leads to severe 10/10 epigastric pain to the extent he needs to come to the ER. This tends to come on approximately 30 minutes after eating. He has not had a substantial meal since Sunday, just eating protein shakes and crackers. These episodes have been going on since the end of September. At that time he went to the ER in [place] but left before being seen on October 09. He returned to the ER for recurrent episode on October 11 and was admitted overnight. On this occasion he reports having an ultrasound of his liver which was unremarkable. He was diagnosed with gastritis and prescribed omeprazole, Zofran and "something to line his stomach" which I suspect is Carafate. These episodes were thought to be due to drinking excessive alcohol the night before. A plain diet was recommended which he stopped to for the next 2 weeks. He had no recurrence until 2 days ago. He reports drinking alcohol 2 days prior to this, but thinks a [employer] meal that he ate on Sunday started this episode. He came to the ER and received a cocktail of Compazine, famotidine, normal saline bolus, Benadryl, morphine. He appeared to improve for the next 2 days until this morning. He does note smoking cannabis, last on Sunday night. He also reports increased chest anxiety which is increased since returning to [facility]. Currently the patient reports improvement in the pain with interventions in the ER on this occasion including normal saline bolus, diphenhydramine, famotidine, metoclopramide, morphine. He currently feels he can take oral medication and wants to try a liquid diet. Principal Diagnosis Gastritis, esophageal candidiasis Discharge Exam Constitutional WD/WN, vitals as above Respiratory normal respiratory effort, lungs clear to auscultation Cardiovascular RRR, no murmur, no edema Gastrointestinal (Abdomen) Inspection/Auscultation: abdomen normal to inspection and normal bowel sounds; abdomen not distended Percussion/Palpation: + abdomen tender and abdomen soft Musculoskeletal no cyanosis or clubbing, extremities motor strength 5/5 Skin no rashes, warm and dry Neurologic moves all extremities and awake Psychiatric A+Ox3, euthymic affect Discharge Data Allergies Allergy/AdvReac Type Severity Reaction Status Date / Time No Known Allergies Allergy Verified 11/20/19 15:24 Consultations 11/19/19 17:19 ED Decision to Admit Stat 11/19/19 20:46 Consult Gastroenterology Routine Procedures Performed Operation Date: 11/20/19 18:00 Actual Procedures p EGD Biopsy Cytology - Liang Baig MD Ordered Studies 11/21/19 10:59 US gallbladder Stat Hospital Course (1) Gastritis: Suspect risk increased due to stress/anxiety, alcohol and prior NSAID use. Continue pantoprazole 40mg bid Avoid alcohol and GERD exacerbating foods such as spicy, acidic, carbonated drinks, caffeine. IV fluids overnight Consult gastroenterology - EGD 11/19 showed severe gastritis and amber esophagitis (2) Esophageal candidiasis: Diflucan for a total of 2 weeks Biopsies pending HIV negative (3) Cannabinoid hyperemesis syndrome: Suspected based on history. Encouraged marijuana cessation Capsaicin prn, does not appear he has required it. (4) Nausea & vomiting: Resolved (5) Abdominal pain: Improving (6) Ketonuria: (7) Marijuana use: (8) Dehydration: (9) Anxiety: Anxiety seems to be the shuttle driver of poor lifestyle choices involving foods and alcohol use. Patient started on buspar 7.5 mg bid. Can titrate up with pcp Patient requested a medication for panic until his buspar was titrated effectively. I am hesitant to prescribe anything for this. While he is on the fluconazole, hydroxazine is probably not a good a idea as they are both QT prolonging. Also in someone who seems to have a bit of a difficult time with substance issues, I would rather not give a script for benzodiazepines due to sedation and habit forming nature. Patient should see [facility] for primary care oversight of anxiety therapy and establish with counselor. I did recommend cognitive behavioral therapy as an option. (10) DVT prophylaxis: Low risk - encourage ambulation (11) Anemia: Likely dilutional especially as patient had poor intake on admission Can follow with pcp Total Time Total Time Spent Total Time Spent (In Minutes): greater than 30 minutes Discharge Plan Discharge Items Patient Disposition: Home - Self-Care Reason For Visit: ABD PAIN, NAUSEA, VOMITING Discharge Diagnosis: Gastritis Activity: Resume your previous activity Non-emergency contact: Primary Care Provider Call non-emergency contact if: you have any medication questions and your symptoms worsen Follow-up/Referrals: Liang Baig MD [Physician] - (follow up in about 2 weeks ) PCP,PRUDENCIO [Primary Care Provider] - (Please see a provider at [facility] in about a week. ) Diet: Regular Addtl Attending Provider Instructions: (1) Gastritis: As seen on endoscopy 11/20. You will take pantoprazole twice per day for at least a month and then decrease to daily. Please discuss timing of decreasing to daily with gastroenterology before doing so Avoid alcohol, avoid NSAIDs such as ibuprofen and naproxen Avoid marijuana in case marijuana hyperemesis syndrome is contributing to your symptoms Biopsies were taken and are pending Follow up with GI in about two weeks. (2) Candidiasis esophagitis You will continue taking fluconazole for 12 more days Biopsies were taken and are pending (3) Anxiety: You were started on buspirone 7.5 mg twice daily. This can be titrated up until your feel you have adequate control of your anxiety. I also encourage you to make use of [facility]'s mental health services which offer some free counseling sessions. Additionally, cognitive behavior therapy (CBT) can be quite effective for anxiety so you may want to find a counselor who can work with you on this practice. Buspar 7.5mg twice a day for two days, you can increase by 5mg a day every 3 days until you reach 30mg twice a day (maximum dose) thus, 10mg twice a day for three days, 12.5mg twice a day for three days, etc. Dr. Hernandez will prescribe a few tablets of Ativan to use only as needed for severe anxiety, not meant to use halfway after you are done with Fluconazole then you could use Vistaril but we would defer that to outpatient provider (4) Anemia Your hemoglobin today was 13.7 which is just under normal. I think your hemoglobin was likely very concentrated due to dehydration when you came in and is not diluted due to the IV fluids given. Your primary care provider may want to recheck this level at your next visit (5) Hyperbilirubinemia Your bilirubin was elevated at 1.3 on your lab work. You were not having a symptoms of gallbladder disease such as pain in your upper right quadrant of your abdomen and your gallbladder was unremarkable on your CT. Sometimes when people are experiencing physical stress it can cause bilirubin to elevate. This is benign. Your gallbladder ultrasound was normal Pending Studies at Discharge: No Stand-Alone Forms: My [facility], Smoking Cessation Medications and DC Order Prescriptions: New fluconazole 200 mg tablet 200 mg PO DAILY 12 Days Qty: 12 RF: 0 pantoprazole 40 mg Tablet,Delayed Release (Dr/Ec) 40 mg PO BID Qty: 60 RF: 1 buspirone 7.5 mg Tablet 7.5 mg PO BID Qty: 28 RF: 0 lorazepam 0.5 mg tablet 0.5 mg PO BID PRN (Reason: anxiety) Qty: 10 RF: 0 Continued dicyclomine 10 mg capsule 10 mg PO TID PRN (Reason: abdominal pain) Qty: 15 RF: 0 Discontinued ondansetron 4 mg tablet,disintegrating 4 mg PO Q6H PRN (Reason: nausea and vomiting) Qty: 20 RF: 0 omeprazole 20 mg capsule,delayed release(DR/EC) 20 mg PO QAM RF: 0 pantoprazole [Protonix] 40 mg tablet,delayed release (DR/EC) 40 mg PO DAILY Qty: 30 RF: 0 Discharge Orders: Discharge Order (Routine); Ordered 11/21/19 Ordered By: Apoorva Cloud/Other Patient Handouts: Understanding Gastritis, Manage Stress with a Healthy Lifestyle Admission Data Admit Date/Time: 11/19/19 18:29 Attending Provider: Mushtaq Hernandez Admit Provider: Rodrigo Naik Primary Care Provider: PCP,NO Other Providers: Rodrigo Naik ; Asa Guillory Other Interventions: Discharge Summary Assessment (RN) Last Done: 11/21/19 15:31 Supervising Physician Co-Signing Physician Notes Patient seen and examined on the day of discharge. I agree with the discharge s ummary by pAoorva IBANEZ. I have reviewed the chart including labs, imaging and plans for discharge. patient doing much better, no abdominal pain tolerating diet discussed his anxiety, will plan to titrate up on Buspar slowly he is concerned about his anxiety getting bad the next 48 hours his dad is at the bedside discussed giving him a small amount of lorazepam in case he needs relief both he and his dad agreed to this - Gastritis: Protonix BID, likely from alcohol use, he knows to abstain from alcohol - Esophageal candidiasis: diagnosed on EGD Diflucan daily x 14 days HIV is negative, he is immunocompetent - Anxiety: started on Buspar 7.5mg BID increase by 5mg every 3 days lorazepam 0.5mg BID PRN for severe anxiety follow up with [facility] Coding Level of Care Code D/C Day Management >30 mins Diagnoses Gastritis K29.00 Chronicity: acute Gastritis bleeding: without bleeding Gastritis type: unspecified gastritis Esophageal candidiasis B37.81 Cannabinoid hyperemesis syndrome R11.2; F12.90 Nausea & vomiting R11.2 Vomiting Intractability: non-intractable Vomiting type: unspecified Abdominal pain R10.84 Abdominal location: generalized Ketonuria R82.4 Marijuana use F12.90 Dehydration E86.0 Anxiety F41.9 DVT prophylaxis Z29.9 Anemia D64.9
[2019-11-21] MEDS ORDERED: BUSPIRONE HCL 7.5 MG TAB PO SCH (21:00)
== END 2019-11-21 16:17 | disposition home or self-care (01) ==
LOC: ED 15:41 → 3W 15:41 → SUATTDRO 18:29 → 3W 19:31